=== PATIENT | male | born 1970 | race African-American/Black ===

== ENCOUNTER 2017-05-24 19:50 | Emergency (ER) | payer OTHER ==
[~2017-05-24] VITALS: Ht 172.7 cm; Wt 90.0 kg
[2017-05-24] MEDS ORDERED: ONDANSETRON HCL 4MG/2ML VIAL IV STA (20:21)
[2017-05-24] MEDS ORDERED: MAGNESIUM/ALUMINUM HYDROXIDE/SIMETHICONE 30ML UDC PO STA (20:21)
[2017-05-24] MEDS ORDERED: SODIUM CHLORIDE 0.9% 500 ML IV ONE (20:21)
[2017-05-24] MEDS ORDERED: MORPHINE SULFATE 10 MG/ML CPJ IV ONE (20:30)
[2017-05-24 20:57] LABS: BASOPHILS % 0.8 % (0.0-2.0); EOSINOPHILS % 2.9 % (0.0-5.0); HEMATOCRIT. 40.5 % (42.0-52.0); HEMOGLOBIN. 13.2 g/dL (14.0-18.0); LYMPHOCYTES % 23.6 % (20.0-50.0); MEAN CORPUSCULAR HEMOGLOBIN 25.4 pg (28.0-32.0); MONOCYTES % 9.6 % (2.0-8.0); NEUTROPHILS % 63.1 % (40.0-76.0); PLATELET 217 x1000/uL (130-400); RED BLOOD CELL COUNT 5.19 mill/uL (4.7-6.1); RED CELL DISTRIBUTION WIDTH 14.7 % (11.6-14.6)
[2017-05-24 21:06] LABS: D-DIMER 0.21 mg/L FEU (<0.50); PARTIAL THROMBOPLASTIN TIME 26.8 sec (23.4-31.0); PROTHROMBIN TIME 10.4 sec (9.4-11.6)
[2017-05-24 21:18] LABS: CARBON DIOXIDE 24 mEq/L (21-32); CHLORIDE 109 mEq/L (98-107); ETHANOL BLOOD 171 mg/dL; TROPONIN I < 0.02 ng/mL (0.00-0.04)
[2017-05-24 21:23] LABS: CLARITY URINE CLEAR (CLEAR); COLOR URINE YELLOW (YELLOW); GLUCOSE URINE NEGATIVE (NEGATIVE); KETONES URINE NEGATIVE (NEGATIVE); LEUKOCYTE ESTERASE URINE NEGATIVE (NEGATIVE); NITRITE URINE NEGATIVE (NEGATIVE); OCCULT BLOOD URINE NEGATIVE (NEGATIVE); PH URINE 5.5 (4.5-8.0); PROTEIN URINE NEGATIVE (NEGATIVE); SPECIFIC GRAVITY URINE 1.009 (1.005-1.030); UROBILINOGEN URINE 0.2 E.U./dL (0.2-1.0)
[2017-05-24 21:43] LABS: *AMPHETAMINES SCREEN URINE NEGATIVE (NEGATIVE); *BARBITURATES SCREEN URINE NEGATIVE (NEGATIVE); *BENZODIAZEPINES SCREEN URINE NEGATIVE (NEGATIVE); *COCAINE SCREEN URINE NEGATIVE (NEGATIVE); CANNABINOID URINE SCREEN NEGATIVE (NEGATIVE); METHADONE URINE SCREEN NEGATIVE (NEGATIVE); OPIATES URINE SCREEN NEGATIVE (NEGATIVE); PHENCYCLIDINE URINE SCREEN NEGATIVE (NEGATIVE)
[2017-05-24 22:15] VITALS: BP 116/85
== END 2017-05-24 22:55 | disposition left against medical advice (07) ==
LOC: ER 21:12 → CANBEDREQ 05-25 00:39
DX: R07.89 Other chest pain (principal); R06.02 Shortness of breath; E78.00 Pure hypercholesterolemia, unspecified; I10 Essential (primary) hypertension; F43.10 Post-traumatic stress disorder, unspecified; F17.210 Nicotine dependence, cigarettes, uncomplicated; R00.0 Tachycardia, unspecified
CPT/HCPCS: 36415; 71010; 80053; 80305; 81003; 83690; 83880; 84443; 84484; 85025; 85379; 85610; 85730; 93005; 96361; 96374; 96375; 99285; G0482; J2270; J2405; J7030; J7040

== ENCOUNTER 2017-05-27 19:30 | Emergency (ER) | payer OTHER ==
[~2017-05-27] VITALS: Ht 172.7 cm; Wt 90.0 kg
[2017-05-27] MEDS ORDERED: IBUPROFEN 400MG TABLET PO ONE (23:45)
[2017-05-28 00:17] LABS: BASOPHILS % 0.9 % (0.0-2.0); EOSINOPHILS % 3.2 % (0.0-5.0); HEMATOCRIT. 38.1 % (42.0-52.0); HEMOGLOBIN. 12.8 g/dL (14.0-18.0); LYMPHOCYTES % 24.7 % (20.0-50.0); MEAN CORPUSCULAR VOLUME 77.5 fL (80.0-94.0); MEAN PLATELET VOLUME 8.1 fl (7.4-10.4); MONOCYTES % 8.9 % (2.0-8.0); NEUTROPHILS % 62.3 % (40.0-76.0); PLATELET 198 x1000/uL (130-400); RED BLOOD CELL COUNT 4.92 mill/uL (4.7-6.1); RED CELL DISTRIBUTION WIDTH 14.3 % (11.6-14.6)
[2017-05-28 00:35] LABS: CARBON DIOXIDE 23 mEq/L (21-32); CHLORIDE 106 mEq/L (98-107); TROPONIN I < 0.02 ng/mL (0.00-0.04)
[2017-05-28 02:00] VITALS: BP 121/78
== END 2017-05-28 02:00 | disposition home or self-care (01) ==
LOC: ER 20:02
DX: M94.0 Chondrocostal junction syndrome [Tietze] (principal); M79.1 Myalgia; F43.10 Post-traumatic stress disorder, unspecified; I10 Essential (primary) hypertension; E78.00 Pure hypercholesterolemia, unspecified; F17.200 Nicotine dependence, unspecified, uncomplicated
CPT/HCPCS: 36415; 80053; 84484; 85025; 93005; 99285

== ENCOUNTER 2018-09-09 07:37 | Inpatient (IN) | payer MEDICARE, OTHER ==
[~2018-09-09] VITALS: Ht 177.8 cm; Wt 85.8 kg
[2018-09-09 08:24] LABS: CHLORIDE 108 mEq/L (98-107); EOSINOPHILS % 4.2 % (0.0-5.0); HEMATOCRIT. 40.8 % (42.0-52.0); HEMOGLOBIN. 13.3 g/dL (14.0-18.0); MEAN CORPUSCULAR HEMOGLOBIN 25.7 pg (28.0-32.0); MEAN CORPUSCULAR VOLUME 79.1 fL (80.0-94.0); MEAN PLATELET VOLUME 8.1 fl (7.4-10.4); MONOCYTES % 9.1 % (2.0-8.0); NEUTROPHILS % 69.7 % (40.0-76.0); PLATELET 219 x1000/uL (130-400); RED BLOOD CELL COUNT 5.15 mill/uL (4.7-6.1); RED CELL DISTRIBUTION WIDTH 15.4 % (11.6-14.6)
[2018-09-09] MEDS: ASPIRIN 81MG TABLET PO SCH (10:30)
[2018-09-09] MEDS ORDERED: CLONIDINE 0.1MG TABLET PO PRN (13:00)
[2018-09-09] MEDS ORDERED: ONDANSETRON HCL 4MG/2ML INJ IV PRN (13:00)
[2018-09-09] MEDS ORDERED: IPRATROPIUM/ALBUTEROL 0.5-3(2.5)MG/3ML NEB INH PRN (13:00)
[2018-09-09] MEDS ORDERED: ACETAMINOPHEN 325MG TABLET PO PRN (13:00)
[2018-09-09] MEDS ORDERED: OMEPRAZOLE 20MG CAPSULE EXTENDED RELEASE PO NR (13:15)
[2018-09-09] MEDS ORDERED: LISI2.5T47 PO (13:29)
[2018-09-09] MEDS ORDERED: ATOR10TA PO (13:30)
[2018-09-09] MEDS ORDERED: SERT20OR6 PO (13:32)
[2018-09-09] MEDS: LISINOPRIL 10MG TABLET PO SCH ×2 (13:36→21:39)
[2018-09-09] MEDS: ENOXAPARIN 40MG/0.4ML SYR SUBCUT SCH (13:36)
[2018-09-09 16:00] VITALS: BP 122/76
[2018-09-09 16:44] LABS: CREATINE KINASE MB FRACTION 1.8 ng/mL (0.5-3.6)
[2018-09-09] MEDS: METOPROLOL TARTRATE 25MG TABLET PO SCH (17:19)
[2018-09-09] MEDS ORDERED: INFLUENZA VIRUS VACCINE(AFLURIA) 0.5ML SYR IM ONE (17:45)
[2018-09-09 19:20] LABS: CLARITY URINE CLEAR (CLEAR); COLOR URINE YELLOW (YELLOW); KETONES URINE NEGATIVE (NEGATIVE); LEUKOCYTE ESTERASE URINE TRACE (NEGATIVE); NITRITE URINE NEGATIVE (NEGATIVE); OCCULT BLOOD URINE NEGATIVE (NEGATIVE); PROTEIN URINE NEGATIVE (NEGATIVE); SPECIFIC GRAVITY URINE 1.021 (1.005-1.030)
[2018-09-09 19:40] LABS: *AMPHETAMINES SCREEN URINE NEGATIVE (NEGATIVE); *BARBITURATES SCREEN URINE NEGATIVE (NEGATIVE)
[2018-09-09 19:41] LABS: *BENZODIAZEPINES SCREEN URINE NEGATIVE (NEGATIVE); *COCAINE SCREEN URINE NEGATIVE (NEGATIVE); METHADONE URINE SCREEN NEGATIVE (NEGATIVE); OPIATES URINE SCREEN NEGATIVE (NEGATIVE)
[2018-09-09 19:42] LABS: CANNABINOID URINE SCREEN NEGATIVE (NEGATIVE); PHENCYCLIDINE URINE SCREEN NEGATIVE (NEGATIVE)
[2018-09-09 20:00] VITALS: BP 118/73
[2018-09-09] MEDS ORDERED: ATORVASTATIN CALCIUM 20MG TABLET PO SCH (21:00)
[2018-09-10] VITALS: BP 131/87
[2018-09-10 04:00] VITALS: BP 108/69
[2018-09-10] MEDS ORDERED: OMEPRAZOLE 20MG CAPSULE EXTENDED RELEASE PO SCH (06:45)
[2018-09-10 07:12] LABS: CHLORIDE 107 mEq/L (98-107)
[2018-09-10 07:18] LABS: BASOPHILS % 0.7 % (0.0-2.0); EOSINOPHILS % 3.9 % (0.0-5.0); HEMATOCRIT. 41.8 % (42.0-52.0); HEMOGLOBIN. 13.5 g/dL (14.0-18.0); LYMPHOCYTES % 20.8 % (20.0-50.0); MEAN CORPUSCULAR HEMOGLOBIN 25.8 pg (28.0-32.0); MEAN CORPUSCULAR VOLUME 79.9 fL (80.0-94.0); MEAN PLATELET VOLUME 8.4 fl (7.4-10.4); MONOCYTES % 9.2 % (2.0-8.0); NEUTROPHILS % 65.4 % (40.0-76.0); PLATELET 213 x1000/uL (130-400); RED BLOOD CELL COUNT 5.24 mill/uL (4.7-6.1); RED CELL DISTRIBUTION WIDTH 15.7 % (11.6-14.6)
[2018-09-10 07:29] LABS: HDL CHOLESTEROL 49 mg/dL (40-59)
[2018-09-10 07:44] LABS: LDL CHOLESTEROL 150 mg/dL (5-100)
[2018-09-10 08:00] VITALS: BP 131/90
[2018-09-10] MEDS: ASPIRIN 81MG TABLET PO SCH (08:28)
[2018-09-10] MEDS: LISINOPRIL 10MG TABLET PO SCH (08:29)
[2018-09-10] MEDS: ENOXAPARIN 40MG/0.4ML SYR SUBCUT SCH (08:29)
[2018-09-10] MEDS: METOPROLOL TARTRATE 25MG TABLET PO SCH (08:30)
[2018-09-10] MEDS ORDERED: ASPIRIN 81MG EC TABLET PO SCH (09:00)
[2018-09-10 10:25] LABS: BG BASE EXCESS -0.3 mmol/L (-2.0-2.0); BG CARBOXYHEMOGLOBIN 0.3 % (0.5-1.5); BG DEOXYHEMOGLOBIN 3.2 % (0.0-5.0); BG FRACTION INSPIRED OXYGEN 21; BG HCO3 ACT 22.7 mmol/L (22.0-26.0); BG METHEMOGLOBIN 0.4 % (0.0-1.5); BG OXYGEN SATURATION 96.8 % (92.0-98.5); BG OXYHEMOGLOBIN 96.1 % (94.0-97.0); BG PCO2 32.5 mmHg (35.0-45.0); BG PH 7.462 (7.350-7.450); BG PO2 87.6 mmHg (75.0-100.0); BG SAMPLE SITE RIGHT RADIAL; BG TOTAL HEMOGLOBIN 14.4 g/dL (12.0-18.0); BG VENT MODE ROOM AIR
[2018-09-10 12:17] VITALS: BP 129/92
[2018-09-10 14:02] VITALS: BP 129/92
== END 2018-09-10 14:30 | disposition home or self-care (01) | DRG 392 ==
LOC: ER 07:42 → 5WST 08:45 → EDBEDREQ 08:50 → ENRESERV 09:10
PROVIDERS: ADMIT Internal Medicine Geriatric Medicine; ATTEND Internal Medicine Geriatric Medicine
DX: K21.9 Gastro-esophageal reflux disease without esophagitis (principal); I24.9 Acute ischemic heart disease, unspecified; K29.70 Gastritis, unspecified, without bleeding; D50.9 Iron deficiency anemia, unspecified; E78.00 Pure hypercholesterolemia, unspecified; E78.5 Hyperlipidemia, unspecified; F17.210 Nicotine dependence, cigarettes, uncomplicated; F43.10 Post-traumatic stress disorder, unspecified; G47.33 Obstructive sleep apnea (adult) (pediatric); I10 Essential (primary) hypertension; I25.10 Atherosclerotic heart disease of native coronary artery without angina pectoris; R74.0 Nonspecific elevation of levels of transaminase and lactic acid dehydrogenase [LDH]; F32.9 Major depressive disorder, single episode, unspecified; Z79.1 Long term (current) use of non-steroidal anti-inflammatories (NSAID); Z82.49 Family history of ischemic heart disease and other diseases of the circulatory system
CPT/HCPCS: 36415; 36600; 71045; 80061; 80305; 82270; 82375; 82553; 82805; 83880; 84484; 93005; 93306; 93970; 96374; 99285; J1650

== ENCOUNTER 2019-09-30 15:59 | Emergency (ER) | payer MEDICARE, OTHER ==
[~2019-09-30] VITALS: Ht 172.7 cm; Wt 80.0 kg
[~2019-09-30 15:59] MED LIST: ATOR10TA PO; LISI2.5T47 PO; SERT20OR6 PO
[2019-09-30] MEDS ORDERED: IBUPROFEN 600MG TABLET PO STA (16:32)
[2019-09-30 17:25] LABS: BASOPHILS % 1.1 % (0.0-2.0); EOSINOPHILS % 1.6 % (0.0-5.0); HEMATOCRIT. 43.1 % (42.0-52.0); HEMOGLOBIN. 14.2 g/dL (14.0-18.0); MEAN CORPUSCULAR HEMOGLOBIN 26.2 pg (28.0-32.0); MEAN CORPUSCULAR VOLUME 79.6 fL (80.0-94.0); MEAN PLATELET VOLUME 8.1 fl (7.4-10.4); MONOCYTES % 5.9 % (2.0-8.0); NEUTROPHILS % 74.4 % (40.0-76.0); PLATELET 198 x1000/uL (130-400); RED BLOOD CELL COUNT 5.41 mill/uL (4.7-6.1); RED CELL DISTRIBUTION WIDTH 15.6 % (11.6-14.6)
[2019-09-30 17:27] LABS: CHLORIDE 101 mEq/L (98-107)
[2019-09-30 17:31] LABS: ETHANOL BLOOD 89 mg/dL
[2019-09-30 18:52] LABS: *AMPHETAMINES SCREEN URINE NEGATIVE (NEGATIVE)
[2019-09-30 18:53] LABS: *BARBITURATES SCREEN URINE NEGATIVE (NEGATIVE); *BENZODIAZEPINES SCREEN URINE NEGATIVE (NEGATIVE); *COCAINE SCREEN URINE NEGATIVE (NEGATIVE); METHADONE URINE SCREEN NEGATIVE (NEGATIVE); OPIATES URINE SCREEN NEGATIVE (NEGATIVE); PHENCYCLIDINE URINE SCREEN NEGATIVE (NEGATIVE)
[2019-09-30 18:54] LABS: CANNABINOID URINE SCREEN NEGATIVE (NEGATIVE)
[2019-09-30 21:54] VITALS: BP 142/97
== END 2019-09-30 21:58 | disposition home or self-care (01) ==
LOC: ER 15:59
DX: R07.89 Other chest pain (principal); F10.129 Alcohol abuse with intoxication, unspecified; I10 Essential (primary) hypertension; E78.00 Pure hypercholesterolemia, unspecified; Y90.4 Blood alcohol level of 80-99 mg/100 ml; Z79.01 Long term (current) use of anticoagulants
CPT/HCPCS: 36415; 71045; 80053; 80305; 80320; 84484; 85025; 93005; 99285; G0480

== ENCOUNTER 2019-10-14 19:36 | Emergency (ER) | payer MEDICARE, OTHER ==
[~2019-10-14] VITALS: Ht 172.7 cm; Wt 84.0 kg
[2019-10-14] MEDS ORDERED: ONDANSETRON HCL 4MG/2ML INJ IV STA (20:18)
[2019-10-14] MEDS ORDERED: SODIUM CHLORIDE 0.9% 1,000 ML IV ONE (20:18)
[2019-10-14] MEDS ORDERED: FAMOTIDINE 20MG/2ML VIAL IV STA (20:18)
[2019-10-14] MEDS ORDERED: MORPHINE SULFATE 4 MG/ML CPJ (NOT FOR IM USE) IV STA (20:18)
[2019-10-14 20:44] LABS: PROTHROMBIN TIME 11.2 sec (9.6-11.0)
[2019-10-14 20:47] LABS: BASOPHILS % 0.8 % (0.0-2.0); EOSINOPHILS % 0.1 % (0.0-5.0); HEMATOCRIT. 38.6 % (42.0-52.0); LYMPHOCYTES % 8.6 % (20.0-50.0); MEAN CORPUSCULAR HEMOGLOBIN 26.1 pg (28.0-32.0); MEAN CORPUSCULAR VOLUME 77.6 fL (80.0-94.0); MEAN PLATELET VOLUME 9.1 fl (7.4-10.4); MONOCYTES % 6.7 % (2.0-8.0); NEUTROPHILS % 83.8 % (40.0-76.0); PLATELET 83 x1000/uL (130-400); RED BLOOD CELL COUNT 4.98 mill/uL (4.7-6.1); RED CELL DISTRIBUTION WIDTH 14.6 % (11.6-14.6)
[2019-10-14 20:57] LABS: CHLORIDE 101 mEq/L (98-107)
[2019-10-14 21:01] LABS: ETHANOL BLOOD 30 mg/dL
[2019-10-15 00:28] LABS: KETONES URINE 3+ (NEGATIVE); LEUKOCYTE ESTERASE URINE NEGATIVE (NEGATIVE); NITRITE URINE NEGATIVE (NEGATIVE); OCCULT BLOOD URINE NEGATIVE (NEGATIVE); PH URINE 5.5 (4.5-8.0); PROTEIN URINE TRACE (NEGATIVE); SPECIFIC GRAVITY URINE 1.025 (1.005-1.030)
[2019-10-15 00:47] LABS: *BENZODIAZEPINES SCREEN URINE NEGATIVE (NEGATIVE); *COCAINE SCREEN URINE NEGATIVE (NEGATIVE); METHADONE URINE SCREEN NEGATIVE (NEGATIVE)
[2019-10-15 00:48] LABS: *AMPHETAMINES SCREEN URINE NEGATIVE (NEGATIVE); *BARBITURATES SCREEN URINE NEGATIVE (NEGATIVE); CANNABINOID URINE SCREEN NEGATIVE (NEGATIVE); CLARITY URINE CLEAR (CLEAR); COLOR URINE YELLOW (YELLOW); OPIATES URINE SCREEN PRESUMTIVE POSITIVE (NEGATIVE); PHENCYCLIDINE URINE SCREEN NEGATIVE (NEGATIVE)
[2019-10-15 02:20] VITALS: BP 147/94
== END 2019-10-15 02:30 | disposition home or self-care (01) ==
LOC: ER 19:36
DX: E87.2 Acidosis (principal); R10.13 Epigastric pain; R11.2 Nausea with vomiting, unspecified; D64.9 Anemia, unspecified; R25.2 Cramp and spasm; E78.00 Pure hypercholesterolemia, unspecified; I10 Essential (primary) hypertension; Z98.890 Other specified postprocedural states; Z87.891 Personal history of nicotine dependence
CPT/HCPCS: 36415; 71045; 74176; 76705; 80053; 80305; 80320; 81003; 83690; 85025; 85610; 93005; 96361; 96374; 96375; 99285; J2270; J2405; J3490; J7030; G0480

== ENCOUNTER 2019-11-05 10:36 | Inpatient (IN) | payer MEDICARE, OTHER ==
[~2019-11-05] VITALS: Ht 172.7 cm; Wt 83.1 kg
[2019-11-05] MEDS ORDERED: ONDANSETRON HCL 4MG/2ML INJ IV STA (11:15)
[2019-11-05] MEDS ORDERED: SODIUM CHLORIDE 0.9% 1,000 ML IV ONE (11:15)
[2019-11-05 11:47] LABS: BASOPHILS % 0.9 % (0.0-2.0); EOSINOPHILS % 1.4 % (0.0-5.0); HEMATOCRIT. 41.4 % (42.0-52.0); HEMOGLOBIN. 13.5 g/dL (14.0-18.0); LYMPHOCYTES % 26.5 % (20.0-50.0); MEAN CORPUSCULAR HEMOGLOBIN 25.7 pg (28.0-32.0); MEAN CORPUSCULAR VOLUME 78.7 fL (80.0-94.0); MONOCYTES % 10.6 % (2.0-8.0); NEUTROPHILS % 60.6 % (40.0-76.0); PLATELET 170 x1000/uL (130-400); RED BLOOD CELL COUNT 5.26 mill/uL (4.7-6.1); RED CELL DISTRIBUTION WIDTH 15.6 % (11.6-14.6)
[2019-11-05 11:58] LABS: CHLORIDE 109 mEq/L (98-107)
[2019-11-05 12:18] LABS: D-DIMER 6.95 mg/L FEU (<0.50); PROTHROMBIN TIME 11.2 sec (9.6-11.0)
[2019-11-05] MEDS ORDERED: POTASSIUM CHLORIDE 20MEQ TABLET SR PO ONE (13:15)
[2019-11-05] MEDS ORDERED: DIPHENHYDRAMINE 50MG/ML VIAL IV PRN (14:00)
[2019-11-05] MEDS ORDERED: ACETAMINOPHEN 325MG TABLET PO PRN (14:00)
[2019-11-05] MEDS ORDERED: MORPHINE SULFATE 2 MG/ML CPJ (NOT FOR IM USE) IV PRN (14:00)
[2019-11-05] MEDS ORDERED: IPRATROPIUM/ALBUTEROL 0.5-3(2.5)MG/3ML NEB HHN PRN (14:00)
[2019-11-05] MEDS: ONDANSETRON HCL 4MG/2ML INJ IV PRN ×2 (14:06→20:08)
[2019-11-05] MEDS: ENOXAPARIN 40MG/0.4ML SYR SUBCUT SCH (14:16)
[2019-11-05] MEDS ORDERED: IOHEXOL-350 100 ML BOTTLE ONE (15:27)
[2019-11-05] MEDS ORDERED: LORAZEPAM 2MG/ML CPJ IV PRN (16:30)
[2019-11-05] MEDS: CLONIDINE 0.1MG TABLET PO PRN (20:08)
[2019-11-05 20:58] LABS: PHOSPHORUS 2.9 mg/dL (2.5-4.9)
[2019-11-05] MEDS: CHLORDIAZEPOXIDE 25MG CAPSULE PO SCH (21:10)
[2019-11-06] VITALS (7 sets, daily range): BP systolic 134–161; BP diastolic 66–99
[2019-11-06] MEDS: CLONIDINE 0.1MG TABLET PO PRN (04:08)
[2019-11-06 05:26] LABS: BASOPHILS % 0.9 % (0.0-2.0); EOSINOPHILS % 1.3 % (0.0-5.0); HEMATOCRIT. 38.9 % (42.0-52.0); HEMOGLOBIN. 12.7 g/dL (14.0-18.0); LYMPHOCYTES % 16.5 % (20.0-50.0); MEAN CORPUSCULAR HEMOGLOBIN 25.8 pg (28.0-32.0); MEAN CORPUSCULAR VOLUME 78.8 fL (80.0-94.0); MEAN PLATELET VOLUME 8.2 fl (7.4-10.4); MONOCYTES % 8.7 % (2.0-8.0); NEUTROPHILS % 72.6 % (40.0-76.0); PLATELET 137 x1000/uL (130-400); RED BLOOD CELL COUNT 4.94 mill/uL (4.7-6.1); RED CELL DISTRIBUTION WIDTH 15.3 % (11.6-14.6)
[2019-11-06 05:35] LABS: CHLORIDE 110 mEq/L (98-107)
[2019-11-06 05:42] LABS: LDL CHOLESTEROL 119 mg/dL (5-100)
[2019-11-06 05:43] LABS: HDL CHOLESTEROL 82 mg/dL (40-59)
[2019-11-06] MEDS: CHLORDIAZEPOXIDE 25MG CAPSULE PO SCH ×3 (08:17→22:15)
[2019-11-06] MEDS ORDERED: REGADENOSON 0.4 MG/5 ML IV SCH (10:30)
[2019-11-06] MEDS: ENOXAPARIN 40MG/0.4ML SYR SUBCUT SCH (14:54)
[2019-11-06] MEDS: NITROGLYCERIN 0.4MG TABLET SL SL PRN ×2 (15:43→20:42)
[2019-11-07] VITALS (7 sets, daily range): BP systolic 108–148; BP diastolic 76–97
[2019-11-07] MEDS: CHLORDIAZEPOXIDE 25MG CAPSULE PO SCH ×2 (06:05→14:51)
[2019-11-07 07:04] LABS: BASOPHILS % 0.8 % (0.0-2.0); EOSINOPHILS % 4.8 % (0.0-5.0); HEMATOCRIT. 35.9 % (42.0-52.0); HEMOGLOBIN. 12.1 g/dL (14.0-18.0); LYMPHOCYTES % 17.9 % (20.0-50.0); MEAN CORPUSCULAR HEMOGLOBIN 26.4 pg (28.0-32.0); MEAN CORPUSCULAR VOLUME 78.5 fL (80.0-94.0); MONOCYTES % 6.2 % (2.0-8.0); NEUTROPHILS % 70.3 % (40.0-76.0); PLATELET 99 x1000/uL (130-400); RED BLOOD CELL COUNT 4.57 mill/uL (4.7-6.1); RED CELL DISTRIBUTION WIDTH 14.8 % (11.6-14.6)
[2019-11-07 07:45] LABS: CHLORIDE 104 mEq/L (98-107)
[2019-11-07] MEDS ORDERED: REGADENOSON 0.4 MG/5 ML IV ONE (07:58)
[2019-11-07] MEDS ORDERED: POTASSIUM CHLORIDE 20MEQ TABLET SR PO NR ×2 (08:30→14:45)
[2019-11-07 09:53] LABS: *AMPHETAMINES SCREEN URINE NEGATIVE (NEGATIVE); *BARBITURATES SCREEN URINE NEGATIVE (NEGATIVE); *BENZODIAZEPINES SCREEN URINE PRESUMTIVE POSITIVE (NEGATIVE); *COCAINE SCREEN URINE NEGATIVE (NEGATIVE); METHADONE URINE SCREEN NEGATIVE (NEGATIVE); OPIATES URINE SCREEN NEGATIVE (NEGATIVE)
[2019-11-07 09:54] LABS: CANNABINOID URINE SCREEN NEGATIVE (NEGATIVE); PHENCYCLIDINE URINE SCREEN NEGATIVE (NEGATIVE)
[2019-11-07] MEDS ORDERED: INFLUENZA VIRUS VACCINE(AFLURIA) 0.5ML SYR IM ONE (11:00)
[2019-11-07] MEDS: ENOXAPARIN 40MG/0.4ML SYR SUBCUT SCH (14:00)
[2019-11-07] MEDS ORDERED: L25 MT (14:40)
[2019-11-07] MEDS ORDERED: LISINOPRIL 20MG TABLET PO SCH (15:00)
== END 2019-11-07 15:34 | disposition home or self-care (01) | DRG 206 ==
LOC: ER 10:36 → 3WST 12:42 → EDBEDREQ 12:47 → EDBEDREQTM 12:47 → EDBEDREQ 19:34 → ENRESERV 11-06 10:39 → 3WST 11-06 18:32
PROVIDERS: ADMIT Internal Medicine; ATTEND Internal Medicine
DX: M94.0 Chondrocostal junction syndrome [Tietze] (principal); R06.02 Shortness of breath; E87.6 Hypokalemia; F10.10 Alcohol abuse, uncomplicated; R74.0 Nonspecific elevation of levels of transaminase and lactic acid dehydrogenase [LDH]; F43.10 Post-traumatic stress disorder, unspecified; I25.10 Atherosclerotic heart disease of native coronary artery without angina pectoris; K76.0 Fatty (change of) liver, not elsewhere classified; F32.9 Major depressive disorder, single episode, unspecified; I11.9 Hypertensive heart disease without heart failure; Z79.899 Other long term (current) drug therapy; Z82.49 Family history of ischemic heart disease and other diseases of the circulatory system; Z87.891 Personal history of nicotine dependence; Z89.429 Acquired absence of other toe(s), unspecified side
CPT/HCPCS: 36415; 71045; 71275; 78452; 80048; 80053; 80061; 80305; 83735; 83880; 84100; 84132; 84443; 84484; 85025; 85379; 86850; 86900; 90686; 93005; 93017; 93306; 93970; 99291; A9500; J1650; J2405; J2785; J7030; Q9967

== ENCOUNTER 2020-03-28 09:32 | Emergency (ER) | payer MEDICARE, OTHER ==
[~2020-03-28] VITALS: Ht 177.8 cm; Wt 82.0 kg
[~2020-03-28 09:32] MED LIST changes: +ASPI-1158 PO; +BUSP10TA3 PO; +FOLI-43 MT; +L25 MT; -LISI2.5T47 PO; +LISI40TA4 PO; +LORA-249 MT; +METO25TA6 PO; +MULT-230 MT; +THIA100T88 MT
[2020-03-28] MEDS ORDERED: ONDANSETRON HCL 4MG/2ML INJ IV STA (10:04)
[2020-03-28] MEDS ORDERED: SODIUM CHLORIDE 0.9% 1,000 ML IV ONE (10:04)
[2020-03-28] MEDS ORDERED: FAMOTIDINE 20MG/2ML VIAL IV ONE (10:15)
[2020-03-28 12:12] LABS: BASOPHILS % 0.6 % (0.0-2.0); EOSINOPHILS % 0.4 % (0.0-5.0); HEMATOCRIT. 45.1 % (42.0-52.0); MEAN CORPUSCULAR HEMOGLOBIN 26.1 pg (28.0-32.0); MEAN CORPUSCULAR VOLUME 78.4 fL (80.0-94.0); MEAN PLATELET VOLUME 7.9 fl (7.4-10.4); MONOCYTES % 5.7 % (2.0-8.0); NEUTROPHILS % 84.3 % (40.0-76.0); PLATELET 218 x1000/uL (130-400); RED BLOOD CELL COUNT 5.75 mill/uL (4.7-6.1); RED CELL DISTRIBUTION WIDTH 14.2 % (11.6-14.6)
[2020-03-28 12:17] LABS: CHLORIDE 105 mEq/L (98-107)
[2020-03-28 12:21] LABS: ETHANOL BLOOD 14 mg/dL
[2020-03-28] MEDS ORDERED: DICYCLOMINE HCL 10MG CAPSULE PO NR (13:15)
[2020-03-28] MEDS ORDERED: CHLORDIAZEPOXIDE 10MG CAPSULE PO ONE (14:00)
[2020-03-28 16:24] VITALS: BP 148/56
== END 2020-03-28 16:59 | disposition home or self-care (01) ==
LOC: ER 09:32
DX: R07.89 Other chest pain (principal); R10.84 Generalized abdominal pain; F10.129 Alcohol abuse with intoxication, unspecified; J44.9 Chronic obstructive pulmonary disease, unspecified; F41.9 Anxiety disorder, unspecified; F32.9 Major depressive disorder, single episode, unspecified; I11.9 Hypertensive heart disease without heart failure; E66.9 Obesity, unspecified; Y90.0 Blood alcohol level of less than 20 mg/100 ml; Z68.25 Body mass index [BMI] 25.0-25.9, adult
CPT/HCPCS: 36415; 71045; 76705; 80053; 80320; 83690; 83880; 84484; 85025; 93005; 96361; 96374; 96375; 99285; J2405; J3490; J7030; G0480

== ENCOUNTER 2020-05-19 00:54 | Emergency (ER) | payer MEDICARE ==
[~2020-05-19] VITALS: Ht 177.8 cm; Wt 82.0 kg
[2020-05-19] MEDS ORDERED: NITROGLYCERIN 0.4MG TABLET SL SL PRN (01:15)
[2020-05-19] MEDS ORDERED: ASPIRIN 81MG TABLET PO ONE (01:15)
[2020-05-19 01:20] LABS: BASOPHILS % 0.8 % (0.0-2.0); EOSINOPHILS % 1.7 % (0.0-5.0); HEMOGLOBIN. 12.7 g/dL (14.0-18.0); LYMPHOCYTES % 31.1 % (20.0-50.0); MEAN CORPUSCULAR HEMOGLOBIN 25.8 pg (28.0-32.0); MEAN CORPUSCULAR VOLUME 77.3 fL (80.0-94.0); MEAN PLATELET VOLUME 7.2 fl (7.4-10.4); MONOCYTES % 9.4 % (2.0-8.0); PLATELET 216 x1000/uL (130-400); RED BLOOD CELL COUNT 4.92 mill/uL (4.7-6.1); RED CELL DISTRIBUTION WIDTH 14.3 % (11.6-14.6)
[2020-05-19 01:26] LABS: CHLORIDE 103 mEq/L (98-107)
[2020-05-19 01:30] LABS: ETHANOL BLOOD 274 mg/dL
[2020-05-19 02:33] LABS: *AMPHETAMINES SCREEN URINE NEGATIVE (NEGATIVE); *BARBITURATES SCREEN URINE NEGATIVE (NEGATIVE); *BENZODIAZEPINES SCREEN URINE NEGATIVE (NEGATIVE); *COCAINE SCREEN URINE NEGATIVE (NEGATIVE); METHADONE URINE SCREEN NEGATIVE (NEGATIVE)
[2020-05-19 02:34] LABS: CANNABINOID URINE SCREEN NEGATIVE (NEGATIVE); OPIATES URINE SCREEN PRESUMTIVE POSITIVE (NEGATIVE); PHENCYCLIDINE URINE SCREEN NEGATIVE (NEGATIVE)
[2020-05-19 07:03] VITALS: BP 120/69
== END 2020-05-19 07:05 | disposition home or self-care (01) ==
LOC: ER 00:54
DX: T51.0X1A Toxic effect of ethanol, accidental (unintentional), initial encounter (principal); Y92.89 Other specified places as the place of occurrence of the external cause; R07.89 Other chest pain; I10 Essential (primary) hypertension; F17.290 Nicotine dependence, other tobacco product, uncomplicated; Z79.82 Long term (current) use of aspirin; Z79.899 Other long term (current) drug therapy
CPT/HCPCS: 36415; 71045; 80053; 80305; 80320; 83880; 84484; 85025; 93005; 99285; G0480

== ENCOUNTER 2020-09-01 16:54 | Emergency (ER) | payer MEDICARE, OTHER ==
[~2020-09-01] VITALS: Ht 175.3 cm; Wt 91.0 kg
[~2020-09-01 16:54] MED LIST changes: -ASPI-1158 PO; +ASPI-1406 PO
[2020-09-01 19:00] LABS: BASOPHILS % 0.6 % (0.0-2.0); EOSINOPHILS % 3.1 % (0.0-5.0); HEMATOCRIT. 36.4 % (42.0-52.0); HEMOGLOBIN. 11.7 g/dL (14.0-18.0); LYMPHOCYTES % 33.5 % (20.0-50.0); MEAN CORPUSCULAR HEMOGLOBIN 25.3 pg (28.0-32.0); MEAN CORPUSCULAR VOLUME 78.9 fL (80.0-94.0); MEAN PLATELET VOLUME 8.3 fl (7.4-10.4); MONOCYTES % 7.3 % (2.0-8.0); NEUTROPHILS % 55.5 % (40.0-76.0); PLATELET 212 x1000/uL (130-400); RED BLOOD CELL COUNT 4.61 mill/uL (4.7-6.1); RED CELL DISTRIBUTION WIDTH 16.3 % (11.6-14.6)
[2020-09-01 20:32] LABS: CHLORIDE 114 mEq/L (98-107)
[2020-09-01 21:15] VITALS: BP 125/81
== END 2020-09-01 21:19 | disposition home or self-care (01) ==
LOC: ER 16:54
DX: R07.89 Other chest pain (principal); E78.00 Pure hypercholesterolemia, unspecified; I10 Essential (primary) hypertension; F17.290 Nicotine dependence, other tobacco product, uncomplicated; Z79.82 Long term (current) use of aspirin; Z79.899 Other long term (current) drug therapy
CPT/HCPCS: 36415; 71045; 80053; 83880; 84484; 85025; 93005; 99285

== ENCOUNTER 2020-12-18 12:54 | Emergency (ER) | payer MEDICARE ==
[~2020-12-18] VITALS: Ht 172.7 cm; Wt 91.0 kg
[~2020-12-18 12:54] MED LIST changes: +LISI40TA13 PO; -LISI40TA4 PO
[2020-12-18] MEDS ORDERED: KETOROLAC 15MG/ML VIAL IV ONE (13:45)
[2020-12-18 14:16] LABS: CHLORIDE 106 mEq/L (98-107)
[2020-12-18 14:20] LABS: BASOPHILS % 0.7 % (0.0-2.0); EOSINOPHILS % 1.1 % (0.0-5.0); HEMATOCRIT. 36.4 % (42.0-52.0); HEMOGLOBIN. 12.1 g/dL (14.0-18.0); LYMPHOCYTES % 13.3 % (20.0-50.0); MEAN CORPUSCULAR HEMOGLOBIN 25.5 pg (28.0-32.0); MEAN CORPUSCULAR VOLUME 76.4 fL (80.0-94.0); MEAN PLATELET VOLUME 8.5 fl (7.4-10.4); MONOCYTES % 7.4 % (2.0-8.0); NEUTROPHILS % 77.5 % (40.0-76.0); PLATELET 150 x1000/uL (130-400); RED BLOOD CELL COUNT 4.77 mill/uL (4.7-6.1); RED CELL DISTRIBUTION WIDTH 16.3 % (11.6-14.6)
[2020-12-18] MEDS ORDERED: IOHEXOL-300 100 ML BOTTLE ONE (17:05)
[2020-12-18 19:33] VITALS: BP 158/97
== END 2020-12-18 19:40 | disposition home or self-care (01) ==
LOC: ER 13:08
DX: R10.31 Right lower quadrant pain (principal); I10 Essential (primary) hypertension; E78.00 Pure hypercholesterolemia, unspecified; F43.10 Post-traumatic stress disorder, unspecified; Z87.19 Personal history of other diseases of the digestive system; Z79.82 Long term (current) use of aspirin
CPT/HCPCS: 36415; 71045; 74177; 80053; 83690; 83880; 84484; 85025; 93005; 96374; 99285; J1885; Q9967

== ENCOUNTER 2021-04-09 09:46 | Inpatient (IN) | payer MEDICARE, OTHER ==
[~2021-04-09] VITALS: Ht 153.9 cm; Wt 86.4 kg
[~2021-04-09 09:46] MED LIST changes: +CHOL200077 PO; -LISI40TA13 PO; +MELA3TAB42 MT; +METO25TA6 MT; -METO25TA6 PO; +PANT40TA51 MT; +PRAZ2CAP2 PO
[2021-04-09] MEDS ORDERED: MORPHINE SULFATE 4 MG/ML CPJ (NOT FOR IM USE) IV STA (09:57)
[2021-04-09 10:53] LABS: CHLORIDE 108 mEq/L (98-107); EOSINOPHILS % 1.3 % (0.0-5.0); HEMATOCRIT. 38.9 % (42.0-52.0); HEMOGLOBIN. 12.9 g/dL (14.0-18.0); LYMPHOCYTES % 18.9 % (20.0-50.0); MEAN CORPUSCULAR HEMOGLOBIN 26.1 pg (28.0-32.0); MEAN CORPUSCULAR VOLUME 78.8 fL (80.0-94.0); MEAN PLATELET VOLUME 7.7 fl (7.4-10.4); MONOCYTES % 5.9 % (2.0-8.0); NEUTROPHILS % 72.9 % (40.0-76.0); PLATELET 242 x1000/uL (130-400); RED BLOOD CELL COUNT 4.95 mill/uL (4.7-6.1); RED CELL DISTRIBUTION WIDTH 14.7 % (11.6-14.6)
[2021-04-09] MEDS ORDERED: MORPHINE SULFATE 2 MG/ML CPJ (NOT FOR IM USE) IV NR (11:00)
[2021-04-09 11:13] LABS: ETHANOL BLOOD 321 mg/dL
[2021-04-09] MEDS ORDERED: ASPIRIN 325MG EC TABLET PO ONE (12:30)
[2021-04-09] MEDS ORDERED: ACETAMINOPHEN 325MG TABLET PO PRN ×2 (15:00)
[2021-04-09] MEDS ORDERED: ONDANSETRON HCL 4MG/2ML INJ IV PRN (15:00)
[2021-04-09 16:00] VITALS: BP 166/113
[2021-04-09 16:25] VITALS: BP 166/113
[2021-04-09 16:45] VITALS: BP 146/93
[2021-04-09] MEDS: ENOXAPARIN 40MG/0.4ML SYR SUBCUT SCH (16:58)
[2021-04-09] MEDS: FOLIC ACID 1MG TABLET PO SCH (17:50)
[2021-04-09 20:00] VITALS: BP 170/109
[2021-04-09] MEDS: BUSPIRONE HCL 10MG TABLET PO SCH (22:00)
[2021-04-09] MEDS: METOPROLOL TARTRATE 25MG TABLET PO SCH (22:01)
[2021-04-09] MEDS: ATORVASTATIN CALCIUM 20MG TABLET PO SCH (22:01)
[2021-04-10] VITALS (7 sets, daily range): BP systolic 158–181; BP diastolic 95–115
[2021-04-10] MEDS: PANTOPRAZOLE 40MG DR TABLET PO SCH (07:09)
[2021-04-10 07:47] LABS: BASOPHILS % 0.8 % (0.0-2.0); EOSINOPHILS % 1.1 % (0.0-5.0); HEMOGLOBIN. 13.2 g/dL (14.0-18.0); LYMPHOCYTES % 17.2 % (20.0-50.0); MEAN CORPUSCULAR VOLUME 78.9 fL (80.0-94.0); MEAN PLATELET VOLUME 8.2 fl (7.4-10.4); MONOCYTES % 12.1 % (2.0-8.0); NEUTROPHILS % 68.8 % (40.0-76.0); PLATELET 214 x1000/uL (130-400); RED BLOOD CELL COUNT 5.07 mill/uL (4.7-6.1); RED CELL DISTRIBUTION WIDTH 14.5 % (11.6-14.6)
[2021-04-10 08:14] LABS: CHLORIDE 101 mEq/L (98-107)
[2021-04-10 08:25] LABS: PHOSPHORUS 2.4 mg/dL (2.5-4.9)
[2021-04-10] MEDS ORDERED: CLONIDINE 0.1MG TABLET PO PRN ×2 (09:15→13:45)
[2021-04-10] MEDS ORDERED: FAMO20TA8 PO (09:18)
[2021-04-10] MEDS ORDERED: POTASSIUM-SODIUM PHOSPHATE POWDER PACKET PO NR (09:20)
[2021-04-10] MEDS: FOLIC ACID 1MG TABLET PO SCH (09:32)
[2021-04-10] MEDS: METOPROLOL TARTRATE 25MG TABLET PO SCH (09:33)
[2021-04-10] MEDS: AMLODIPINE 10MG TABLET PO SCH (09:35)
[2021-04-10] MEDS ORDERED: METOPROLOL TARTRATE 25MG TABLET PO ONE ×2 (10:30)
[2021-04-10] MEDS: BUSPIRONE HCL 10MG TABLET PO SCH ×2 (10:50→21:11)
[2021-04-10] MEDS ORDERED: HYDRALAZINE HCL 50MG TABLET PO NR (13:45)
[2021-04-10] MEDS ORDERED: HYDRALAZINE 20MG/ML VIAL IV NR (13:45)
[2021-04-10] MEDS ORDERED: LORAZEPAM 2MG/ML CPJ IV PRN (13:45)
[2021-04-10] MEDS ORDERED: HYDRALAZINE HCL 25MG TABLET PO SCH (14:00)
[2021-04-10 14:51] LABS: CLARITY URINE CLEAR (CLEAR); COLOR URINE YELLOW (YELLOW); KETONES URINE 2+ (NEGATIVE); LEUKOCYTE ESTERASE URINE NEGATIVE (NEGATIVE); NITRITE URINE NEGATIVE (NEGATIVE); OCCULT BLOOD URINE NEGATIVE (NEGATIVE); PH URINE 8.5 (4.5-8.0); PROTEIN URINE 1+ (NEGATIVE); SPECIFIC GRAVITY URINE 1.027 (1.005-1.030)
[2021-04-10 15:19] LABS: *BARBITURATES SCREEN URINE NEGATIVE (NEGATIVE)
[2021-04-10 15:20] LABS: *AMPHETAMINES SCREEN URINE NEGATIVE (NEGATIVE); *BENZODIAZEPINES SCREEN URINE PRESUMTIVE POSITIVE (NEGATIVE); *COCAINE SCREEN URINE NEGATIVE (NEGATIVE); METHADONE URINE SCREEN NEGATIVE (NEGATIVE); OPIATES URINE SCREEN PRESUMTIVE POSITIVE (NEGATIVE)
[2021-04-10 15:21] LABS: CANNABINOID URINE SCREEN NEGATIVE (NEGATIVE); PHENCYCLIDINE URINE SCREEN NEGATIVE (NEGATIVE)
[2021-04-10] MEDS: ENOXAPARIN 40MG/0.4ML SYR SUBCUT SCH (16:32)
[2021-04-10] MEDS: ATORVASTATIN CALCIUM 20MG TABLET PO SCH (21:11)
[2021-04-10] MEDS: METOPROLOL TARTRATE 50MG TABLET PO SCH (21:12)
[2021-04-10] MEDS: HYDRALAZINE HCL 100MG TABLET PO SCH (21:12)
[2021-04-11] VITALS: BP 143/93
[2021-04-11 03:56] VITALS: BP 144/97
[2021-04-11] MEDS: PANTOPRAZOLE 40MG DR TABLET PO SCH (06:18)
[2021-04-11] MEDS: HYDRALAZINE HCL 100MG TABLET PO SCH (06:18)
[2021-04-11 08:00] VITALS: BP 141/96
[2021-04-11] MEDS: METOPROLOL TARTRATE 50MG TABLET PO SCH (08:47)
[2021-04-11] MEDS: AMLODIPINE 10MG TABLET PO SCH (08:47)
[2021-04-11] MEDS: BUSPIRONE HCL 10MG TABLET PO SCH (08:48)
[2021-04-11] MEDS: FOLIC ACID 1MG TABLET PO SCH (08:48)
[2021-04-11] MEDS ORDERED: METOPROLOL TARTRATE 50MG TABLET PO ONE (09:30)
[2021-04-11] MEDS ORDERED: AMLO10TA80 PO (11:07)
[2021-04-11] MEDS ORDERED: HYDR-4135 MT (11:10)
[2021-04-11] MEDS ORDERED: METO-411 MT (11:10)
[2021-04-11 11:31] VITALS: BP 148/87
[2021-04-11 12:00] VITALS: BP 128/93
[2021-04-11] MEDS ORDERED: METOPROLOL TARTRATE 50MG TABLET PO SCH (21:00)
[2021-04-12] MEDS ORDERED: FAMOTIDINE 20MG TABLET PO SCH (07:10)
== END 2021-04-11 12:19 | disposition home health service (06) | DRG 880 ==
LOC: ER 10:20 → 8WST 12:30 → EDBEDREQ 12:39 → EDBEDREQTM 12:39 → SUPCPDRO 14:10 → ENRESERV 14:50
PROVIDERS: ADMIT Internal Medicine; ATTEND Internal Medicine
DX: F41.9 Anxiety disorder, unspecified (principal); F10.139 Alcohol abuse with withdrawal, unspecified; F43.10 Post-traumatic stress disorder, unspecified; E78.5 Hyperlipidemia, unspecified; F17.290 Nicotine dependence, other tobacco product, uncomplicated; F32.9 Major depressive disorder, single episode, unspecified; G47.33 Obstructive sleep apnea (adult) (pediatric); K21.9 Gastro-esophageal reflux disease without esophagitis; T78.3XXA Angioneurotic edema, initial encounter; Y90.8 Blood alcohol level of 240 mg/100 ml or more; I10 Essential (primary) hypertension; I20.9 Angina pectoris, unspecified; Z88.8 Allergy status to other drugs, medicaments and biological substances; Z79.899 Other long term (current) drug therapy; Z82.49 Family history of ischemic heart disease and other diseases of the circulatory system; Z79.82 Long term (current) use of aspirin; R25.1 Tremor, unspecified
CPT/HCPCS: 36415; 71045; 80053; 80305; 80320; 81003; 83735; 83880; 84100; 84484; 85025; 93005; 99285; J0360; J1650; J2060; J2270; G0480

== ENCOUNTER 2023-03-14 17:23 | Emergency (ER) | payer OTHER, MEDICARE ==
[~2023-03-14] VITALS: Ht 182.9 cm; Wt 91.0 kg
[~2023-03-14 17:23] MED LIST changes: +AMLO10TA80 PO; +HYDR-4135 MT; -L25 MT; -LORA-249 MT; +METO-411 MT; -METO25TA6 MT
[2023-03-14 17:40] VITALS: BP 150/52; PULSE 120; RESP 16; TEMP 98.6; O2SAT 92
[2023-03-14] MEDS ORDERED: DICYCLOMINE 10 MG/5 ML ORAL SYR PO NR (18:30)
[2023-03-14] MEDS ORDERED: DICYCLOMINE HCL 10MG CAPSULE PO NR (18:30)
[2023-03-14] MEDS ORDERED: MAGNESIUM/ALUMINUM HYDROXIDE/SIMETHICONE 30ML UDC PO NR (18:30)
== END 2023-03-14 20:12 | disposition left against medical advice (07) ==
LOC: ER 19:21 → CANBEDREQ 03-16 21:14
DX: R07.89 Other chest pain (principal); F41.9 Anxiety disorder, unspecified; F32.9 Major depressive disorder, single episode, unspecified; E11.9 Type 2 diabetes mellitus without complications; I10 Essential (primary) hypertension; Z79.899 Other long term (current) drug therapy
CPT/HCPCS: 71045; 93005; 99283

== ENCOUNTER 2023-10-29 20:02 | Emergency (ER) | payer MEDICARE, OTHER ==
[~2023-10-29] VITALS: Ht 172.7 cm; Wt 75.0 kg
[~2023-10-29 20:02] MED LIST changes: +AMOX1TAB16 PO; -CHOL200077 PO; +FAMO20TA8 PO; -HYDR-4135 MT; +HYDR50TA40 MT; +NIFE-71 PO; +ONDA4TAB11 PO
[2023-10-29 20:04] VITALS: TEMP 99.3; O2SAT 95
[2023-10-29] MEDS ORDERED: ASPIRIN 81MG TABLET PO ONE (20:15)
[2023-10-29 20:57] LABS: BASOPHILS % 0.8 % (0.0-2.0); EOSINOPHILS % 5.1 % (0.0-5.0); HEMATOCRIT. 40.2 % (42.0-52.0); LYMPHOCYTES % 28.5 % (20.0-50.0); MEAN CORPUSCULAR HGB CONC 32.4 g/dL (31.0-37.0); MEAN CORPUSCULAR VOLUME 83.2 fL (80.0-94.0); MEAN PLATELET VOLUME 7.7 fl (7.4-10.4); MONOCYTES % 8.6 % (2.0-8.0); PLATELET 240 x1000/uL (130-400); RED BLOOD CELL COUNT 4.84 mill/uL (4.7-6.1); RED CELL DISTRIBUTION WIDTH 14.9 % (11.6-14.6); WHITE BLOOD COUNT 7.6 x1000/uL (4.5-11.0)
[2023-10-29 21:02] LABS: CARBON DIOXIDE 26 mEq/L (21-32); CHLORIDE 105 mEq/L (98-107); POTASSIUM 3.1 mEq/L (3.5-5.1); SODIUM 141 mEq/L (136-145)
[2023-10-29 21:03] LABS: CALCIUM 8.9 mg/dL (8.7-10.4)
[2023-10-29 21:07] LABS: CREATININE 0.7 mg/dL (0.6-1.3); PROTHROMBIN TIME 11.4 sec (9.6-11.0)
[2023-10-29 21:08] LABS: ETHANOL BLOOD 242 mg/dL (<10); GLUCOSE 115 mg/dL (70-105); UREA NITROGEN BLOOD 7 mg/dL (9-23)
[2023-10-29 21:09] LABS: ALANINE AMINOTRANSFERASE 44 IU/L (10-49); ALBUMIN 3.8 g/dL (3.2-4.8); ASPARTATE AMINOTRANSFERASE 76 IU/L (<34)
[2023-10-29 21:10] LABS: BILIRUBIN TOTAL 0.5 mg/dL (0.1-1.0); PROTEIN TOTAL 6.9 g/dL (6.0-8.3)
[2023-10-29 21:12] LABS: TROPONIN I HIGH SENSITIVITY < 4 ng/L (3.0-53)
[2023-10-30] MEDS: ASPIRIN 81MG TABLET PO NR (00:06)
[2023-10-30 00:13] VITALS: BP 134/71; PULSE 88; RESP 18
[2023-11-01] MEDS ORDERED: OMEP40CA20 PO (15:17)
[2023-11-01] MEDS ORDERED: METO-539 PO (15:17)
[2023-11-01] MEDS ORDERED: NALT50TA PO (15:17)
[2023-11-01] MEDS ORDERED: HYDR100T26 PO (16:45)
[2023-11-01] MEDS ORDERED: ASPI-1406 PO (16:45)
[2023-11-01] MEDS ORDERED: METO-385 PO (16:45)
[2023-11-01] MEDS ORDERED: THIA100T72 PO (16:45)
[2023-11-01] MEDS ORDERED: ATOR20TA PO (16:45)
[2023-11-01] MEDS ORDERED: BUSP10TA4 PO (16:45)
[2023-11-01] MEDS ORDERED: SERT100T PO (16:45)
[2023-11-01] MEDS ORDERED: AMLO10TA80 PO (16:45)
[2023-11-01] MEDS ORDERED: FOLI-43 PO (16:45)
== END 2023-10-30 00:14 | disposition home or self-care (01) ==
LOC: ER 20:02
DX: R07.89 Other chest pain (principal); F41.9 Anxiety disorder, unspecified; F32.9 Major depressive disorder, single episode, unspecified; E11.9 Type 2 diabetes mellitus without complications; I10 Essential (primary) hypertension; Z79.899 Other long term (current) drug therapy
CPT/HCPCS: 36415; 71045; 80053; 80320; 83880; 84484; 85025; 93005; 99285; G0480

== ENCOUNTER 2023-11-11 12:03 | Inpatient (IN) | payer MEDICARE, OTHER ==
[~2023-11-11] VITALS: Ht 172.7 cm; Wt 82.8 kg
[~2023-11-11 12:03] MED LIST changes: -AMOX1TAB16 PO; -ATOR10TA PO; +ATOR20TA PO; -BUSP10TA3 PO; +BUSP10TA4 PO; -FAMO20TA8 PO; -FOLI-43 MT; +FOLI-43 PO; +HYDR100T26 PO; -HYDR50TA40 MT; -MELA3TAB42 MT; +METO-385 PO; -METO-411 MT; -MULT-230 MT; -NIFE-71 PO; -PANT40TA51 MT; -PRAZ2CAP2 PO; +SERT100T PO; -SERT20OR6 PO; +THIA100T72 PO; -THIA100T88 MT
[2023-11-11] MEDS: SODIUM CHLORIDE 0.9% 1,000 ML IV ONE (13:21)
[2023-11-11] MEDS: ONDANSETRON HCL 4MG/2ML INJ IV STA (13:21)
[2023-11-11] MEDS: MORPHINE SULFATE 4 MG/ML INJ (FOR IV/IM USE) IV STA (13:21)
[2023-11-11 13:30] LABS: BASOPHILS % 0.8 % (0.0-2.0); EOSINOPHILS % 0.4 % (0.0-5.0); HEMATOCRIT. 41.9 % (42.0-52.0); HEMOGLOBIN. 13.6 g/dL (14.0-18.0); LYMPHOCYTES % 7.1 % (20.0-50.0); MEAN CORPUSCULAR HEMOGLOBIN 26.8 pg (28.0-32.0); MEAN CORPUSCULAR HGB CONC 32.5 g/dL (31.0-37.0); MEAN CORPUSCULAR VOLUME 82.5 fL (80.0-94.0); MEAN PLATELET VOLUME 8.2 fl (7.4-10.4); MONOCYTES % 5.5 % (2.0-8.0); NEUTROPHILS % 86.2 % (40.0-76.0); PLATELET 186 x1000/uL (130-400); RED BLOOD CELL COUNT 5.08 mill/uL (4.7-6.1); RED CELL DISTRIBUTION WIDTH 14.9 % (11.6-14.6); WHITE BLOOD COUNT 8.8 x1000/uL (4.5-11.0)
[2023-11-11 13:36] LABS: CARBON DIOXIDE 22 mEq/L (21-32); CHLORIDE 103 mEq/L (98-107); POTASSIUM 4.1 mEq/L (3.5-5.1); SODIUM 137 mEq/L (136-145)
[2023-11-11 13:42] LABS: CREATININE 0.7 mg/dL (0.6-1.3); GLUCOSE 124 mg/dL (70-105); TROPONIN I HIGH SENSITIVITY 6 ng/L (3.0-53); UREA NITROGEN BLOOD 7 mg/dL (9-23)
[2023-11-11 13:44] LABS: ALANINE AMINOTRANSFERASE 43 IU/L (10-49); ALBUMIN 4.2 g/dL (3.2-4.8); ASPARTATE AMINOTRANSFERASE 84 IU/L (<34); PROTEIN TOTAL 7.9 g/dL (6.0-8.3)
[2023-11-11 14:42] LABS: D-DIMER 0.47 mg/L FEU (<0.50); INR 1.1; PARTIAL THROMBOPLASTIN TIME 25.9 sec (23.4-31.0); PROTHROMBIN TIME 11.9 sec (9.6-11.0)
[2023-11-11 15:44] VITALS: O2SAT 98
[2023-11-11] MEDS: MIDAZOLAM HCL 2 MG/2 ML VIAL IV ONE (15:44)
[2023-11-11] MEDS: ASPIRIN 81MG TABLET PO ONE (15:44)
[2023-11-11 15:58] LABS: TROPONIN I HIGH SENSITIVITY 10 ng/L (3.0-53)
[2023-11-11 20:00] VITALS: BP 151/103; PULSE 107; RESP 18; TEMP 97.8
[2023-11-11] MEDS ORDERED: NALT50TA5 PO (21:05)
[2023-11-11] MEDS ORDERED: LEVE500T19 PO (21:05)
[2023-11-11] MEDS ORDERED: LORAZEPAM 2MG/ML INJ IV PRN (21:30)
[2023-11-11] MEDS: LABETALOL 5MG/ML SYR 20 MG/4 ML SYRINGE IV NR (23:43)
[2023-11-12] VITALS: BP 149/99; PULSE 91; RESP 18; TEMP 98
[2023-11-12] MEDS ORDERED: IPRATROPIUM/ALBUTEROL 0.5-3(2.5)MG/3ML NEB HHN PRN
[2023-11-12] MEDS ORDERED: GUAIFENESIN 200MG/10ML SUGAR FREE UDC PO PRN
[2023-11-12] MEDS ORDERED: DOCUSATE SODIUM 100MG CAPSULE PO PRN
[2023-11-12] MEDS ORDERED: ACETAMINOPHEN 325MG TABLET PO PRN ×2
[2023-11-12] MEDS: FOLIC ACID 1 MG, THIAMINE HCL 100 MG, MVI, ADULT NO.1 10 ML in DEXTROSE 5% WATER 1,000 ML IV ONE (00:37)
[2023-11-12 02:28] LABS: CLARITY URINE CLEAR (CLEAR); COLOR URINE YELLOW (YELLOW); GLUCOSE URINE NEGATIVE (NEGATIVE); KETONES URINE 2+ (NEGATIVE); LEUKOCYTE ESTERASE URINE NEGATIVE (NEGATIVE); NITRITE URINE NEGATIVE (NEGATIVE); OCCULT BLOOD URINE NEGATIVE (NEGATIVE); PROTEIN URINE NEGATIVE (NEGATIVE); SPECIFIC GRAVITY URINE 1.013 (1.005-1.030)
[2023-11-12 03:02] LABS: *AMPHETAMINES SCREEN URINE NEGATIVE (NEGATIVE); *BARBITURATES SCREEN URINE NEGATIVE (NEGATIVE); *BENZODIAZEPINES SCREEN URINE PRESUMPTIVE POSITIVE (NEGATIVE); *COCAINE SCREEN URINE NEGATIVE (NEGATIVE); CANNABINOID URINE SCREEN NEGATIVE (NEGATIVE); METHADONE URINE SCREEN NEGATIVE (NEGATIVE); OPIATES URINE SCREEN PRESUMPTIVE POSITIVE (NEGATIVE); PHENCYCLIDINE URINE SCREEN NEGATIVE (NEGATIVE)
[2023-11-12 03:03] LABS: ECSTASY MDMA SCREEN URINE NEGATIVE (NEGATIVE)
[2023-11-12 04:00] VITALS: BP 145/98; PULSE 89; RESP 18; TEMP 98.1
[2023-11-12 08:00] VITALS: BP 143/99; PULSE 111; RESP 18; TEMP 97.2
[2023-11-12] MEDS ORDERED: DEXTROSE 50% WATER 50ML SYRINGE IV PRN (08:00)
[2023-11-12 08:20] LABS: BASOPHILS % 0.5 % (0.0-2.0); EOSINOPHILS % 1.8 % (0.0-5.0); HEMATOCRIT. 36.6 % (42.0-52.0); HEMOGLOBIN. 11.9 g/dL (14.0-18.0); LYMPHOCYTES % 14.6 % (20.0-50.0); MEAN CORPUSCULAR HEMOGLOBIN 27.2 pg (28.0-32.0); MEAN CORPUSCULAR HGB CONC 32.4 g/dL (31.0-37.0); MEAN PLATELET VOLUME 8.3 fl (7.4-10.4); MONOCYTES % 7.1 % (2.0-8.0); PLATELET 136 x1000/uL (130-400); RED BLOOD CELL COUNT 4.36 mill/uL (4.7-6.1); RED CELL DISTRIBUTION WIDTH 14.6 % (11.6-14.6); WHITE BLOOD COUNT 6.2 x1000/uL (4.5-11.0)
[2023-11-12] MEDS: AMLODIPINE 10MG TABLET PO SCH (08:38)
[2023-11-12] MEDS: PANTOPRAZOLE SODIUM 40 MG/VIAL IV SCH (08:38)
[2023-11-12] MEDS: BUSPIRONE HCL 10MG TABLET PO SCH (08:39)
[2023-11-12] MEDS: FOLIC ACID 1MG TABLET PO SCH (08:39)
[2023-11-12] MEDS: SERTRALINE HCL 100MG TABLET PO SCH (08:39)
[2023-11-12] MEDS: LEVETIRACETAM 500MG TABLET PO SCH (08:40)
[2023-11-12] MEDS: THIAMINE HCL 100MG TABLET PO SCH (08:40)
[2023-11-12] MEDS: ASPIRIN 81MG EC TABLET PO SCH (08:40)
[2023-11-12] MEDS: HYDRALAZINE HCL 100MG TABLET PO SCH (08:40)
[2023-11-12] MEDS: METOPROLOL SUCCINATE 50MG ER TABLET PO SCH (08:41)
[2023-11-12 08:42] LABS: CALCIUM 8.8 mg/dL (8.7-10.4); CARBON DIOXIDE 22 mEq/L (21-32); CHLORIDE 89 mEq/L (98-107)
[2023-11-12] MEDS: ENOXAPARIN 40MG/0.4ML SYR SUBCUT SCH (08:42)
[2023-11-12 08:46] LABS: IRON 99 ug/dL (65-175)
[2023-11-12 08:47] LABS: CREATINE KINASE 96 IU/L (46-171); CREATININE 0.8 mg/dL (0.6-1.3); T4 FREE 1.51 ng/dL (0.89-1.76); THYROID STIMULATING HORMONE 1.25 uIU/mL (0.55-4.78)
[2023-11-12 08:48] LABS: UREA NITROGEN BLOOD 5 mg/dL (9-23)
[2023-11-12 08:50] LABS: TOTAL IRON BINDING CAPACITY 56 ug/dl (250-425)
[2023-11-12] MEDS ORDERED: LEVETIRACETAM 500MG TABLET PO SCH (09:00)
[2023-11-12 09:27] LABS: GLUCOSE 626 mg/dL (70-105); SODIUM 118 mEq/L (136-145)
[2023-11-12] MEDS ORDERED: INSULIN LISPRO 100 UNITS/ML SUBCUT NR (09:45)
[2023-11-12] MEDS ORDERED: *PATIENT'S OWN MEDICATION STORAGE XX SCH (11:45)
[2023-11-12 12:00] VITALS: BP 127/85; PULSE 81; RESP 16; TEMP 96.9
[2023-11-12] MEDS: BLOOD SUGAR DIAGNOSTIC STRIP TEST SCH (12:44)
[2023-11-12] MEDS: NALTREXONE 50 MG PO SCH (12:48)
[2023-11-12 14:42] LABS: VITAMIN B12 SERUM 360 pg/mL (211-911)
[2023-11-12] MEDS ORDERED: POTASSIUM CHLORIDE 20MEQ TABLET SR PO NR (14:45)
[2023-11-12 14:57] LABS: FOLIC ACID (FOLATE) SERUM > 20.00 ng/mL (>5.38)
[2023-11-12 16:00] VITALS: BP 133/85; PULSE 79; RESP 18; TEMP 97.6
[2023-11-12] MEDS ORDERED: ATORVASTATIN CALCIUM 20MG TABLET PO SCH (21:00)
== END 2023-11-12 18:00 | disposition left against medical advice (07) | DRG 392 ==
LOC: ER 12:13 → 5WST 16:07 → EDBEDREQ 16:15 → EDBEDREQTM 16:15 → EDBEDREQ 16:16 → 7WST 18:03
PROVIDERS: ADMIT Internal Medicine; ATTEND Internal Medicine
DX: K29.20 Alcoholic gastritis without bleeding (principal); E87.1 Hypo-osmolality and hyponatremia; K76.0 Fatty (change of) liver, not elsewhere classified; F32.A Depression, unspecified; Z53.29 Procedure and treatment not carried out because of patient's decision for other reasons; F43.10 Post-traumatic stress disorder, unspecified; F17.200 Nicotine dependence, unspecified, uncomplicated; G40.909 Epilepsy, unspecified, not intractable, without status epilepticus; E78.5 Hyperlipidemia, unspecified; E11.65 Type 2 diabetes mellitus with hyperglycemia; D64.9 Anemia, unspecified; F10.20 Alcohol dependence, uncomplicated; I10 Essential (primary) hypertension; Z82.49 Family history of ischemic heart disease and other diseases of the circulatory system; Z79.899 Other long term (current) drug therapy; Z88.8 Allergy status to other drugs, medicaments and biological substances; Z87.19 Personal history of other diseases of the digestive system
CPT/HCPCS: 36415; 71045; 74176; 80048; 80053; 80305; 81003; 82550; 82607; 82746; 82962; 83036; 83540; 83550; 83880; 84439; 84443; 84484; 85025; 85379; 93005; 93970; 99285; C9113; J1650; J2250; J2270; J2405; J3411; J3490; J7030; J7070

== ENCOUNTER 2023-11-21 19:47 | Emergency (ER) | payer MEDICARE, OTHER ==
[~2023-11-21] VITALS: Ht 172.7 cm; Wt 75.0 kg
[~2023-11-21 19:47] MED LIST changes: +LEVE500T19 PO; +NALT50TA5 PO
[2023-11-21 19:58] VITALS: BP 116/84; PULSE 68; RESP 16; TEMP 98.1; O2SAT 99
== END 2023-11-21 20:39 | disposition left against medical advice (07) ==
LOC: ER 19:47
DX: R07.89 Other chest pain (principal); I10 Essential (primary) hypertension; F43.10 Post-traumatic stress disorder, unspecified; F41.9 Anxiety disorder, unspecified; E11.9 Type 2 diabetes mellitus without complications; F32.A Depression, unspecified; Z88.8 Allergy status to other drugs, medicaments and biological substances
CPT/HCPCS: 93005; 99283

== ENCOUNTER 2023-11-23 10:13 | Emergency (ER) | payer MEDICARE, OTHER ==
[~2023-11-23] VITALS: Ht 180.3 cm; Wt 73.0 kg
[2023-11-23 10:16] VITALS: TEMP 98.6; O2SAT 100
[2023-11-23 15:54] VITALS: BP 148/82; PULSE 80; RESP 16
[2023-11-23] MEDS: HYDROCODONE/ACETAMINOPHEN 5/325MG TABLET PO ONE (15:54)
[2023-11-23 16:01] LABS: TROPONIN I HIGH SENSITIVITY < 4 ng/L (3.0-53)
[2023-11-23] MEDS ORDERED: TRAM-529 MT (16:10)
[2023-11-23] MEDS: ONDANSETRON 4MG ODT PO ONE (16:23)
== END 2023-11-23 16:25 | disposition home or self-care (01) ==
LOC: ER 10:13
DX: R07.9 Chest pain, unspecified (principal); F41.9 Anxiety disorder, unspecified; I10 Essential (primary) hypertension
CPT/HCPCS: 99284; 71045; 84484; 36415; Q0162

== ENCOUNTER 2023-12-21 13:40 | Emergency (ER) | payer MEDICARE, OTHER ==
[~2023-12-21] VITALS: Ht 172.7 cm; Wt 82.0 kg
[~2023-12-21 13:40] MED LIST changes: +TRAM-529 MT
[2023-12-21 13:44] VITALS: O2SAT 94
[2023-12-21 14:53] LABS: BASOPHILS % 1.4 % (0.0-2.0); EOSINOPHILS % 3.1 % (0.0-5.0); HEMATOCRIT. 36.3 % (42.0-52.0); HEMOGLOBIN. 11.9 g/dL (14.0-18.0); LYMPHOCYTES % 29.3 % (20.0-50.0); MEAN CORPUSCULAR HEMOGLOBIN 26.8 pg (28.0-32.0); MEAN CORPUSCULAR HGB CONC 32.9 g/dL (31.0-37.0); MEAN CORPUSCULAR VOLUME 81.6 fL (80.0-94.0); MEAN PLATELET VOLUME 7.4 fl (7.4-10.4); MONOCYTES % 8.2 % (2.0-8.0); PLATELET 203 x1000/uL (130-400); RED BLOOD CELL COUNT 4.44 mill/uL (4.7-6.1); RED CELL DISTRIBUTION WIDTH 14.9 % (11.6-14.6); WHITE BLOOD COUNT 4.5 x1000/uL (4.5-11.0)
[2023-12-21 14:59] LABS: CHLORIDE 109 mEq/L (98-107); POTASSIUM 3.6 mEq/L (3.5-5.1); SODIUM 144 mEq/L (136-145)
[2023-12-21 15:00] LABS: CARBON DIOXIDE 25 mEq/L (21-32)
[2023-12-21 15:01] LABS: CALCIUM 8.9 mg/dL (8.7-10.4)
[2023-12-21 15:04] LABS: PARTIAL THROMBOPLASTIN TIME 27.4 sec (23.4-31.0)
[2023-12-21 15:05] LABS: CREATININE 0.7 mg/dL (0.6-1.3); GLUCOSE 100 mg/dL (70-105)
[2023-12-21 15:06] LABS: UREA NITROGEN BLOOD 6 mg/dL (9-23)
[2023-12-21 15:18] LABS: TROPONIN I HIGH SENSITIVITY < 4 ng/L (3.0-53)
[2023-12-21 16:14] LABS: ETHANOL BLOOD 298 mg/dL (<10)
[2023-12-21 16:26] VITALS: BP 108/75; PULSE 69; RESP 16; TEMP 98.5
[2023-12-21 17:13] LABS: TROPONIN I HIGH SENSITIVITY < 4 ng/L (3.0-53)
== END 2023-12-21 18:12 | disposition home or self-care (01) ==
LOC: ER 13:40
DX: R07.89 Other chest pain (principal); I10 Essential (primary) hypertension; Z88.8 Allergy status to other drugs, medicaments and biological substances; Z79.899 Other long term (current) drug therapy; Z98.890 Other specified postprocedural states; Z86.59 Personal history of other mental and behavioral disorders
CPT/HCPCS: 36415; 71045; 80048; 80320; 83880; 84484; 85025; 93005; 99285; G0480

== ENCOUNTER 2024-01-25 02:46 | Inpatient (IN) | payer MEDICARE, OTHER ==
[~2024-01-25] VITALS: Ht 172.7 cm; Wt 77.6 kg
[~2024-01-25 02:46] MED LIST changes: +SODI650T MT
[2024-01-25] MEDS: MAGNESIUM/ALUMINUM HYDROXIDE/SIMETHICONE 30ML UDC PO ONE (03:00)
[2024-01-25 03:41] LABS: HEMATOCRIT. 35.4 % (42.0-52.0); HEMOGLOBIN. 11.5 g/dL (14.0-18.0); MEAN CORPUSCULAR HEMOGLOBIN 26.1 pg (28.0-32.0); MEAN CORPUSCULAR HGB CONC 32.5 g/dL (31.0-37.0); MEAN CORPUSCULAR VOLUME 80.3 fL (80.0-94.0); MEAN PLATELET VOLUME 6.7 fl (7.4-10.4); PLATELET 212 x1000/uL (130-400); RED BLOOD CELL COUNT 4.41 mill/uL (4.7-6.1); RED CELL DISTRIBUTION WIDTH 15.9 % (11.6-14.6); WHITE BLOOD COUNT 4.6 x1000/uL (4.5-11.0)
[2024-01-25 03:51] LABS: CHLORIDE 104 mEq/L (98-107); POTASSIUM 3.5 mEq/L (3.5-5.1); SODIUM 146 mEq/L (136-145)
[2024-01-25 03:52] LABS: CALCIUM 9.4 mg/dL (8.7-10.4); CARBON DIOXIDE 27 mEq/L (21-32)
[2024-01-25 03:57] LABS: CREATININE 0.7 mg/dL (0.6-1.3); ETHANOL BLOOD 300 mg/dL (<10); GLUCOSE 112 mg/dL (70-105); TROPONIN I HIGH SENSITIVITY 5 ng/L (3.0-53); UREA NITROGEN BLOOD 6 mg/dL (9-23)
[2024-01-25 03:59] LABS: ALANINE AMINOTRANSFERASE 128 IU/L (10-49); ALBUMIN 4.3 g/dL (3.2-4.8); ASPARTATE AMINOTRANSFERASE 166 IU/L (<34); BILIRUBIN DIRECT 0.3 mg/dL (<=3.0); BILIRUBIN TOTAL 0.6 mg/dL (0.1-1.0); PROTEIN TOTAL 7.7 g/dL (6.0-8.3)
[2024-01-25 04:15] LABS: PARTIAL THROMBOPLASTIN TIME 26.3 sec (23.4-31.0); PROTHROMBIN TIME 11.4 sec (9.6-11.0)
[2024-01-25] MEDS ORDERED: ZOLPIDEM TARTRATE 5MG TABLET PO PRN (06:45)
[2024-01-25] MEDS ORDERED: GUAIFENESIN 200MG/10ML SUGAR FREE UDC PO PRN (06:45)
[2024-01-25] MEDS ORDERED: ACETAMINOPHEN 325MG TABLET PO PRN ×2 (06:45)
[2024-01-25] MEDS ORDERED: DOCUSATE SODIUM 100MG CAPSULE PO PRN (06:45)
[2024-01-25] MEDS ORDERED: MAGNESIUM/ALUMINUM HYDROXIDE/SIMETHICONE 30ML UDC PO PRN (06:45)
[2024-01-25] MEDS ORDERED: IPRATROPIUM/ALBUTEROL 0.5-3(2.5)MG/3ML NEB NEB PRN (06:45)
[2024-01-25] MEDS ORDERED: NITROGLYCERIN 0.4MG TABLET SL SL PRN (06:45)
[2024-01-25 07:31] LABS: IRON 137 ug/dL (65-175); THYROID STIMULATING HORMONE 1.02 uIU/mL (0.55-4.78)
[2024-01-25 07:32] LABS: CHOLESTEROL 206 mg/dL (<200); T4 FREE 1.17 ng/dL (0.89-1.76); TRIGLYCERIDE 86 mg/dL (0-150)
[2024-01-25 07:33] LABS: LDL CHOLESTEROL 108 mg/dL (5-100)
[2024-01-25 07:34] LABS: HDL CHOLESTEROL 92 mg/dL (>55); TOTAL IRON BINDING CAPACITY 211 ug/dl (250-425)
[2024-01-25 07:41] LABS: VITAMIN B12 SERUM 668 pg/mL (211-911)
[2024-01-25 07:43] LABS: FOLIC ACID (FOLATE) SERUM 17.16 ng/mL (>5.38)
[2024-01-25 10:05] LABS: BASOPHILS % 0.9 % (0.0-2.0); LYMPHOCYTES % 53.4 % (20.0-50.0); MONOCYTES % 12.3 % (2.0-8.0); NEUTROPHILS % 31.4 % (40.0-76.0)
[2024-01-25] MEDS: SUCRALFATE 1G TABLET PO SCH (13:00)
[2024-01-25] MEDS: PANTOPRAZOLE SODIUM 40 MG/VIAL IV SCH (13:02)
[2024-01-25] MEDS: ASPIRIN 81MG EC TABLET PO SCH (13:02)
[2024-01-25] MEDS: ENOXAPARIN 40MG/0.4ML SYR SUBCUT SCH (13:03)
[2024-01-25] MEDS: MVI, ADULT NO.1 10 ML, FOLIC ACID 1 MG, THIAMINE HCL 100 MG in SODIUM CHLORIDE 0.9% 1,0... IV NR (14:03)
[2024-01-25 17:28] LABS: CREATINE KINASE MB FRACTION 1.7 ng/mL (0.5-3.6)
[2024-01-25] MEDS: ONDANSETRON HCL 4MG/2ML INJ IV PRN (22:36)
[2024-01-25] MEDS: KETOROLAC 15MG/ML VIAL IV PRN (22:51)
[2024-01-26] VITALS (7 sets, daily range): BP systolic 131–162; BP diastolic 70–112; PULSE 85–94; RESP 16–20; TEMP 97.5–98.1
[2024-01-26] MEDS: LORAZEPAM 2MG/ML INJ IV NR (02:27)
[2024-01-26 05:46] LABS: BASOPHILS % 1.4 % (0.0-2.0); EOSINOPHILS % 0.9 % (0.0-5.0); HEMATOCRIT. 35.6 % (42.0-52.0); HEMOGLOBIN. 11.6 g/dL (14.0-18.0); LYMPHOCYTES % 18.7 % (20.0-50.0); MEAN CORPUSCULAR HEMOGLOBIN 26.3 pg (28.0-32.0); MEAN CORPUSCULAR HGB CONC 32.5 g/dL (31.0-37.0); MEAN CORPUSCULAR VOLUME 80.8 fL (80.0-94.0); MEAN PLATELET VOLUME 7.3 fl (7.4-10.4); PLATELET 180 x1000/uL (130-400); RED CELL DISTRIBUTION WIDTH 16.3 % (11.6-14.6); WHITE BLOOD COUNT 3.9 x1000/uL (4.5-11.0)
[2024-01-26 05:48] LABS: DIFFERENTIAL COMMENT 1
[2024-01-26 05:57] LABS: CHLORIDE 98 mEq/L (98-107); POTASSIUM 3.5 mEq/L (3.5-5.1); SODIUM 137 mEq/L (136-145)
[2024-01-26 05:59] LABS: CARBON DIOXIDE 24 mEq/L (21-32)
[2024-01-26 06:00] LABS: CALCIUM 9.1 mg/dL (8.7-10.4)
[2024-01-26 06:04] LABS: CREATINE KINASE MB FRACTION 1.5 ng/mL (0.5-3.6); CREATININE 0.7 mg/dL (0.6-1.3); TROPONIN I HIGH SENSITIVITY 6 ng/L (3.0-53)
[2024-01-26 06:05] LABS: GLUCOSE 126 mg/dL (70-105); UREA NITROGEN BLOOD 6 mg/dL (9-23)
[2024-01-26 06:06] LABS: ALANINE AMINOTRANSFERASE 95 IU/L (10-49); ALBUMIN 4.3 g/dL (3.2-4.8)
[2024-01-26 06:07] LABS: ASPARTATE AMINOTRANSFERASE 100 IU/L (<34); BILIRUBIN TOTAL 1.4 mg/dL (0.1-1.0); CREATINE KINASE 251 IU/L (46-171); PHOSPHORUS 2.2 mg/dL (2.5-4.9); PROTEIN TOTAL 7.7 g/dL (6.0-8.3)
[2024-01-26] MEDS: CLONIDINE 0.1MG TABLET PO PRN (09:14)
[2024-01-26] MEDS: AMLODIPINE 10MG TABLET PO SCH (14:51)
[2024-01-27] VITALS: BP 127/95; PULSE 96; RESP 18; TEMP 98
[2024-01-27 04:00] VITALS: BP 131/101; PULSE 104; RESP 18; TEMP 98.1
[2024-01-27 08:00] VITALS: BP 122/92; PULSE 100; RESP 16; TEMP 97.2
[2024-01-27] MEDS ORDERED: THIA100T72 PO (11:44)
[2024-01-27] MEDS ORDERED: SUCR1TAB30 MT (11:44)
[2024-01-27] MEDS ORDERED: OMEP20CA14 MT (11:44)
[2024-01-27] MEDS ORDERED: FOLI-43 PO (11:44)
[2024-01-27] MEDS: SODIUM CHLORIDE 0.9% 1,000 ML IV ONE (11:51)
[2024-01-27 12:00] VITALS: BP 111/80; PULSE 111; RESP 19; TEMP 98.2
[2024-01-27] MEDS: METOPROLOL SUCCINATE 50MG ER TABLET PO SCH (12:12)
[2024-01-27 13:54] VITALS: BP 111/80; PULSE 111; TEMP 98.2; O2SAT 97
[2024-01-27] MEDS: PNEUMOCOCCAL 23-VAL P-SAC VAC 0.5 ML IM ONE (15:24)
[2024-01-27] MEDS ORDERED: SODIUM CHLORIDE 0.9% 1,000 ML IV ONE (16:00)
== END 2024-01-27 15:35 | disposition home or self-care (01) | DRG 392 ==
LOC: ER 02:46 → 5WST 05:52 → EDBEDREQ 06:09 → 7EST 01-26 08:44
PROVIDERS: ADMIT Internal Medicine; ATTEND Internal Medicine
DX: K29.70 Gastritis, unspecified, without bleeding (principal); E87.0 Hyperosmolality and hypernatremia; D63.8 Anemia in other chronic diseases classified elsewhere; F10.129 Alcohol abuse with intoxication, unspecified; F41.9 Anxiety disorder, unspecified; F32.A Depression, unspecified; I10 Essential (primary) hypertension; Z87.11 Personal history of peptic ulcer disease; Z82.49 Family history of ischemic heart disease and other diseases of the circulatory system
CPT/HCPCS: 36415; 71045; 80048; 80053; 80061; 80076; 80320; 82550; 82553; 82607; 82746; 83036; 83540; 83550; 83735; 83880; 84100; 84439; 84443; 84484; 85025; 90732; 93005; 93306; 93970; 99285; J1650; J1885; J2060; J2405; J2470; J3411; J3490; J7030; G0480

== ENCOUNTER 2024-03-01 15:48 | Emergency (ER) | payer MEDICARE, OTHER ==
[~2024-03-01] VITALS: Ht 170.2 cm; Wt 73.0 kg
[~2024-03-01 15:48] MED LIST changes: -AMLO10TA80 PO; -BUSP10TA4 PO; -FOLI-43 PO; -HYDR100T26 PO; -LEVE500T19 PO; -METO-385 PO; -NALT50TA5 PO; -ONDA4TAB11 PO; -SERT100T PO; -SODI650T MT; -THIA100T72 PO; -TRAM-529 MT
[2024-03-01 15:58] VITALS: TEMP 98.4; O2SAT 96
[2024-03-01 17:31] LABS: CHLORIDE 109 mEq/L (98-107); POTASSIUM 3.5 mEq/L (3.5-5.1); SODIUM 144 mEq/L (136-145)
[2024-03-01 17:32] LABS: BASOPHILS % 1.2 % (0.0-2.0); CARBON DIOXIDE 24 mEq/L (21-32); EOSINOPHILS % 4.7 % (0.0-5.0); HEMATOCRIT. 34.6 % (42.0-52.0); HEMOGLOBIN. 11.1 g/dL (14.0-18.0); LYMPHOCYTES % 37.6 % (20.0-50.0); MEAN CORPUSCULAR HGB CONC 32.1 g/dL (31.0-37.0); MEAN CORPUSCULAR VOLUME 84.1 fL (80.0-94.0); MEAN PLATELET VOLUME 7.1 fl (7.4-10.4); MONOCYTES % 9.9 % (2.0-8.0); NEUTROPHILS % 46.6 % (40.0-76.0); PLATELET 201 x1000/uL (130-400); RED BLOOD CELL COUNT 4.11 mill/uL (4.7-6.1); RED CELL DISTRIBUTION WIDTH 16.6 % (11.6-14.6); WHITE BLOOD COUNT 3.7 x1000/uL (4.5-11.0)
[2024-03-01 17:33] LABS: CALCIUM 8.6 mg/dL (8.7-10.4)
[2024-03-01 17:37] LABS: CREATININE 0.8 mg/dL (0.6-1.3); GLUCOSE 194 mg/dL (70-105)
[2024-03-01 17:38] LABS: UREA NITROGEN BLOOD 6 mg/dL (9-23)
[2024-03-01 17:39] LABS: ALANINE AMINOTRANSFERASE 75 IU/L (10-49); ALBUMIN 3.8 g/dL (3.2-4.8); ASPARTATE AMINOTRANSFERASE 123 IU/L (<34)
[2024-03-01 17:40] LABS: BILIRUBIN TOTAL 0.5 mg/dL (0.1-1.0); PROTEIN TOTAL 6.9 g/dL (6.0-8.3); PROTHROMBIN TIME 10.9 sec (9.6-11.0); TROPONIN I HIGH SENSITIVITY < 4 ng/L (3.0-53)
[2024-03-01 19:34] VITALS: BP 133/95; PULSE 89; RESP 14; O2SAT 99
[2024-03-01] MEDS: ASPIRIN 325MG TABLET PO ONE (20:21)
[2024-03-05] MEDS ORDERED: MULT-1146 MT (09:09)
[2024-03-05] MEDS ORDERED: AMLO10TA80 PO (09:09)
[2024-03-05] MEDS ORDERED: FOLI-43 MT (09:09)
[2024-03-05] MEDS ORDERED: THIA50TA12 MT (09:09)
== END 2024-03-01 22:12 | disposition left against medical advice (07) ==
LOC: ER 15:48 → EDBEDREQTM 21:56 → EDBEDREQ 22:05 → ER 22:12 → CANBEDREQ 22:13
DX: R07.9 Chest pain, unspecified (principal); F41.9 Anxiety disorder, unspecified; I10 Essential (primary) hypertension; G40.909 Epilepsy, unspecified, not intractable, without status epilepticus; F43.10 Post-traumatic stress disorder, unspecified; Z88.8 Allergy status to other drugs, medicaments and biological substances; Z79.899 Other long term (current) drug therapy
CPT/HCPCS: 36415; 71045; 80053; 84484; 85025; 93005; 99291

== ENCOUNTER 2024-03-12 17:07 | Emergency (ER) | payer MEDICARE, OTHER ==
[~2024-03-12] VITALS: Ht 175.3 cm; Wt 70.0 kg
[~2024-03-12 17:07] MED LIST changes: +AMLO10TA80 PO; +FOLI-43 MT; +MULT-1146 MT; +THIA50TA12 MT
[2024-03-12 17:08] VITALS: BP 119/76; PULSE 108; RESP 16; TEMP 98.3; O2SAT 97
== END 2024-03-12 20:14 | disposition home or self-care (01) ==
LOC: ER 17:16
DX: F10.129 Alcohol abuse with intoxication, unspecified (principal); F41.9 Anxiety disorder, unspecified; I10 Essential (primary) hypertension; Z88.8 Allergy status to other drugs, medicaments and biological substances; Y90.9 Presence of alcohol in blood, level not specified
CPT/HCPCS: 99283

== ENCOUNTER 2024-03-17 13:26 | Emergency (ER) | payer MEDICARE ==
[~2024-03-17] VITALS: Ht 172.7 cm; Wt 79.0 kg
[2024-03-17 13:32] VITALS: TEMP 98; O2SAT 95
[2024-03-17] MEDS: MAGNESIUM/ALUMINUM HYDROXIDE/SIMETHICONE 30ML UDC PO STA (14:09)
[2024-03-17] MEDS: ONDANSETRON 4MG ODT PO STA (14:10)
[2024-03-17 14:15] LABS: BASOPHILS % 2.3 % (0.0-2.0); EOSINOPHILS % 5.3 % (0.0-5.0); HEMATOCRIT. 38.3 % (42.0-52.0); HEMOGLOBIN. 12.1 g/dL (14.0-18.0); LYMPHOCYTES % 23.4 % (20.0-50.0); MEAN CORPUSCULAR HEMOGLOBIN 26.3 pg (28.0-32.0); MEAN CORPUSCULAR HGB CONC 31.7 g/dL (31.0-37.0); MEAN PLATELET VOLUME 7.3 fl (7.4-10.4); MONOCYTES % 3.8 % (2.0-8.0); NEUTROPHILS % 65.2 % (40.0-76.0); PLATELET 268 x1000/uL (130-400); RED BLOOD CELL COUNT 4.62 mill/uL (4.7-6.1); RED CELL DISTRIBUTION WIDTH 15.3 % (11.6-14.6); WHITE BLOOD COUNT 5.6 x1000/uL (4.5-11.0)
[2024-03-17 14:20] LABS: CHLORIDE 104 mEq/L (98-107); POTASSIUM 3.5 mEq/L (3.5-5.1); SODIUM 140 mEq/L (136-145)
[2024-03-17 14:21] LABS: CARBON DIOXIDE 20 mEq/L (21-32)
[2024-03-17] MEDS: DICYCLOMINE 10 MG/5 ML ORAL SYR PO STA (14:21)
[2024-03-17 14:26] LABS: CREATININE 0.8 mg/dL (0.6-1.3); GLUCOSE 68 mg/dL (70-105); UREA NITROGEN BLOOD 13 mg/dL (9-23)
[2024-03-17 14:30] LABS: TROPONIN I HIGH SENSITIVITY < 4 ng/L (3.0-53)
[2024-03-17 14:35] LABS: ETHANOL BLOOD 349 mg/dL (<10)
[2024-03-17 16:38] VITALS: BP 106/69; PULSE 70; RESP 14; O2SAT 100
== END 2024-03-17 16:42 | disposition home or self-care (01) ==
LOC: ER 13:40
DX: F10.129 Alcohol abuse with intoxication, unspecified (principal); R07.89 Other chest pain; I10 Essential (primary) hypertension; Z88.8 Allergy status to other drugs, medicaments and biological substances; Z98.890 Other specified postprocedural states; Z86.59 Personal history of other mental and behavioral disorders; Y90.8 Blood alcohol level of 240 mg/100 ml or more
CPT/HCPCS: 80048; 80320; 83880; 83690; 85025; 84484; 36415; 71045; 93005; 99285; Q0162; G0480

== ENCOUNTER 2024-04-23 15:49 | Emergency (ER) | payer MEDICARE ==
[~2024-04-23] VITALS: Ht 175.3 cm; Wt 70.0 kg
[2024-04-23 15:52] VITALS: BP 117/69; PULSE 110; RESP 16; TEMP 98; O2SAT 95
[2024-04-23] MEDS ORDERED: ONDANSETRON HCL 4MG/2ML INJ IV ONE (16:15)
[2024-04-23] MEDS ORDERED: SODIUM CHLORIDE 0.9% 1,000 ML IV ONE (16:15)
[2024-04-23 17:02] LABS: BASOPHILS % 0.8 % (0.0-2.0); DIFFERENTIAL COMMENT 0; EOSINOPHILS % 1.5 % (0.0-5.0); HEMOGLOBIN. 13.3 g/dL (14.0-18.0); LYMPHOCYTES % 16.5 % (20.0-50.0); MEAN CORPUSCULAR HEMOGLOBIN 26.7 pg (28.0-32.0); MEAN CORPUSCULAR HGB CONC 30.8 g/dL (31.0-37.0); MEAN CORPUSCULAR VOLUME 86.5 fL (80.0-94.0); MEAN PLATELET VOLUME 7.7 fl (7.4-10.4); MONOCYTES % 3.8 % (2.0-8.0); NEUTROPHILS % 77.4 % (40.0-76.0); PLATELET 182 x1000/uL (130-400); RED BLOOD CELL COUNT 4.98 mill/uL (4.7-6.1); RED CELL DISTRIBUTION WIDTH 15.7 % (11.6-14.6); WHITE BLOOD COUNT 7.9 x1000/uL (4.5-11.0)
[2024-04-23 17:07] LABS: CHLORIDE 106 mEq/L (98-107); POTASSIUM 3.7 mEq/L (3.5-5.1); SODIUM 141 mEq/L (136-145)
[2024-04-23 17:08] LABS: CARBON DIOXIDE 17 mEq/L (21-32)
[2024-04-23 17:09] LABS: CALCIUM 9.4 mg/dL (8.7-10.4)
[2024-04-23 17:13] LABS: CREATININE 0.8 mg/dL (0.6-1.3)
[2024-04-23 17:14] LABS: GLUCOSE 77 mg/dL (70-105); UREA NITROGEN BLOOD 9 mg/dL (9-23)
[2024-04-23 17:15] LABS: ALANINE AMINOTRANSFERASE 27 IU/L (10-49); ALBUMIN 4.4 g/dL (3.2-4.8); ASPARTATE AMINOTRANSFERASE 66 IU/L (<34)
[2024-04-23 17:16] LABS: BILIRUBIN DIRECT 0.3 mg/dL (<=3.0); BILIRUBIN TOTAL 0.9 mg/dL (0.1-1.0); PROTEIN TOTAL 8.1 g/dL (6.0-8.3)
[2024-04-23 17:19] LABS: TROPONIN I HIGH SENSITIVITY < 4 ng/L (3.0-53)
== END 2024-04-23 19:49 | disposition home or self-care (01) ==
LOC: ER 15:49 → EDBEDREQ 16:19 → CANBEDREQ 18:15 → ER 19:49
DX: F10.129 Alcohol abuse with intoxication, unspecified (principal); I10 Essential (primary) hypertension; F41.9 Anxiety disorder, unspecified; Z79.899 Other long term (current) drug therapy; Z88.8 Allergy status to other drugs, medicaments and biological substances; Y90.7 Blood alcohol level of 200-239 mg/100 ml
CPT/HCPCS: 80076; 80048; 80320; 83880; 83690; 85025; 84484; 36415; 71045; 93005; 99285; J7030; G0480

== ENCOUNTER 2024-08-11 08:45 | Emergency (ER) | payer MEDICARE, OTHER ==
[~2024-08-11] VITALS: Ht 177.8 cm; Wt 82.0 kg
[2024-08-11 08:46] VITALS: BP 136/84; PULSE 106; RESP 18; TEMP 37.4; O2SAT 99
== END 2024-08-11 10:08 | disposition left against medical advice (07) ==
LOC: ER 08:45
DX: R10.9 Unspecified abdominal pain (principal); Z53.21 Procedure and treatment not carried out due to patient leaving prior to being seen by health care provider